=== PATIENT | female | born 1940 | race Caucasian/White ===

== ENCOUNTER → 2016-12-02 | Outpatient (CLI) | payer MEDICARE ==
--- NOTE | 2016-12-03 08:34 | MM ---
Reason for exam: screening (asymptomatic). Last mammogram was performed 1 year and 1 month ago. History: Patient is postmenopausal. Family history of premenopausal breast cancer in daughter at age 40. Took hormonal contraceptives for 10 years. Took estrogen for 5 years. Physical Findings: A clinical breast exam by your physician is recommended on an annual basis and results should be correlated with mammographic findings. MG 3D Screening Mammo W/Cad Bilateral CC and MLO view(s) were taken. Prior study comparison: November 13, 2015, bilateral MG 3d screening mammo w/cad. October 10, 2013, bilateral MG screening mammo w CAD. There are scattered fibroglandular densities. Benign calcifications are stable. No significant changes when compared with prior studies. ASSESSMENT: Benign, BI-RAD 2 RECOMMENDATION: Routine screening mammogram of both breasts in 1 year.
== END | disposition home or self-care (01) ==
LOC: RADMAMWWP 09:31
PROVIDERS: ATTEND Family Medicine
DX: Z12.31 Encounter for screening mammogram for malignant neoplasm of breast (principal)
CPT/HCPCS: 77063; G0202

== ENCOUNTER 2018-04-24 13:18 | Emergency (ER) | payer MEDICARE ==
[2018-04-24 13:25] VITALS: RESP 18
--- NOTE | 2018-04-24 13:44 | ED ---
General Adult HPI - General Chief complaint: Shortness of Breath Stated complaint: SOB Time Seen by Provider: 04/24/18 13:27 Source: patient Mode of arrival: wheelchair Limitations: no limitations - Related Data Home Medications Medication Instructions Recorded Confirmed Aspirin EC [Ecotrin Low Dose] 81 mg PO DAILY 04/24/18 04/24/18 Atorvastatin [Lipitor] 40 mg PO HS 04/24/18 04/24/18 Cholecalciferol [Vitamin D3] 1,000 unit PO DAILY 04/24/18 04/24/18 Clopidogrel [Plavix] 75 mg PO HS 04/24/18 04/24/18 Fluticasone Propionate [Flovent 250 mcg INHALATION RT-BID 04/24/18 04/24/18 Diskus] Loratadine [Claritin] 10 mg PO DAILY 04/24/18 04/24/18 Losartan Potassium [Cozaar] 50 mg PO DAILY 04/24/18 04/24/18 Metoprolol Succinate [Toprol XL] 25 mg PO DAILY 04/24/18 04/24/18 Multivitamin,Therapeutic [Thera] 1 tab PO DAILY 04/24/18 04/24/18 Vit C/E/Zn/Coppr/Lutein/Zeaxan 1 cap PO DAILY 04/24/18 04/24/18 [Preservision Areds 2 Softgel] metFORMIN HCL 500 mg PO BID 04/24/18 04/24/18 Previous Rx's Medication Instructions Recorded Azithromycin [Zithromax Z-pack] 0 mg PO DIRECTED #6 tab 04/24/18 Allergies Allergy/AdvReac Type Severity Reaction Status Date / Time ciprofloxacin [From Cipro] Allergy Unknown Verified 04/24/18 13:49 Review of Systems ROS Statement: Those systems with pertinent positive or pertinent negative responses have been documented in the HPI. ROS Other: All systems not noted in ROS Statement are negative. Past Medical History Past Medical History: COPD, CVA/TIA, Diabetes Mellitus, Hyperlipidemia, Hypertension, Myocardial Infarction (DC) Additional Past Medical History / Comment(s): diverticulitis History of Any Multi-Drug Resistant Organisms: None Reported Past Surgical History: Appendectomy, Tonsillectomy Additional Past Surgical History / Comment(s): Open Heart Surgery Past Psychological History: No Psychological Hx Reported Smoking Status: Former smoker Past Alcohol Use History: None Reported Past Drug Use History: None Reported General Exam Limitations: no limitations Course Vital Signs 04/24/18 13:20 Temperature 97.5 F L Pulse Rate 93 Respiratory 18 Rate Blood Pressure 132/82 O2 Sat by Pulse 98 Oximetry Medical Decision Making - Medical Decision Making Dictation was produced using [facility] [employer] dictation software. please excuse any grammatical, word or spelling errors. Chief Complaint: 77-year-old female past medical history coronary artery disease , COPD, hypertension presents with shortness of breath. History of Present Illness: Patient 77-year-old female presents chief complaint of shortness of breath. Patient has been feeling unwell for the last 2-3 days. She was [facility] seen [facility] she was sent here because of concern of cardiac disease. Patient has been runny nose, nasal congestion for the past 2 days. Today she states her symptoms are getting slightly worse. No overt sick contacts. Patient denies any swelling to her lower extremities. Patient has any pain complaints. She's been also coughing. She states her cough is productive of white sputum. Patient denies any fevers however does have some chills. The ROS documented in this emergency department record has been reviewed and confirmed by me. Those systems with pertinent positive or negative responses have been documented in the HPI. All other systems are other negative and/or noncontributory. PHYSICAL EXAM: General Impression: Alert and oriented x3, not in acute distress HEENT: Normocephalic atraumatic, extra-ocular movements intact, pupils equal and reactive to light bilaterally, mucous membranes moist. Cardiovascular: Heart regular rate and rhythm, S1&S2 audible, no murmurs, rubs or gallops Chest: Lungs clear to auscultation bilaterally, no rhonchi, no wheeze, no rales Abdomen: Bowel sounds present, abdomen soft, non-tender, non-distended, no organomegaly Musculoskeletal: Pulses present and equal in all extremities, no peripheral edema Motor: Power 5/5 bilaterally, no focal deficits noted Neurological: CN II-XII grossly intact, no focal motor or sensory deficits noted Skin: Intact with no visualized rashes Psych: Normal affect and mood ED course: 77-year-old well-appearing female with clinical presentation concerning for viral URI versus pulmonary infection. Upon arrival are within acceptable limits. Patient showing any signs of acute decompensated heart failure. No clinical suspicion of pulmonary embolus. She has rhinorrhea and nasal congestion at bedside. Patient's symptoms consistent with viral URI however there is a chance that her symptoms may represent early pneumonia. Patient prescription for Zithromax pack. She is told to fill it in 1-2 days if she feels her symptoms are not improving. Patient otherwise told to follow-up with primary care physician. Told to return to emergency department with worsening symptoms including worsening shortness of breath, fever, constitutional symptoms. No click suspicion of pulmonary emboli causing shortness breath given that no lower extremity symptoms. No history of PE or DVT and patient converted medically stable. Patient understandable agreeable to plan. - Lab Data Lab Results 04/24/18 Range/Units 13:50 Influenza Type A RNA Not Detected (Not Detectd) Influenza Type B (PCR) Not Detected (Not Detectd) Disposition Clinical Impression: URI (upper respiratory infection) Disposition: HOME SELF-CARE Condition: Good Instructions (If sedation given, give patient instructions): Acute Bronchitis ( ED) Prescriptions: Azithromycin [Zithromax Z-pack] 0 mg PO DIRECTED #6 tab Is patient prescribed a controlled substance at d/c from ED?: No Referrals: Nonstaff,Physician [Primary Care Provider] - 1-2 days Time of Disposition: 14:32
--- NOTE | 2018-04-24 14:00 | XR ---
EXAMINATION TYPE: XR chest 2V DATE OF EXAM: 04/24/2018 COMPARISON: NONE HISTORY: Shortness of breath TECHNIQUE: Frontal and lateral views of the chest are obtained. FINDINGS: Scattered senescent parenchymal changes noted. Hyperinflation compatible with COPD. No evidence for infiltrate. No evidence for atelectasis. Heart size is stable. Mediastinal structures are stable and grossly unremarkable. No evidence for hilar prominence. Degenerative changes dorsal spine. IMPRESSION: 1. No evidence for acute pulmonary disease.
[2018-04-24 14:48] VITALS: BP 135/80; PULSE 80; TEMP 97.4
== END 2018-04-24 14:46 | disposition home or self-care (01) ==
LOC: EC 13:18
DX: J06.9 Acute upper respiratory infection, unspecified (principal); R06.02 Shortness of breath; J44.9 Chronic obstructive pulmonary disease, unspecified; E11.9 Type 2 diabetes mellitus without complications; E78.5 Hyperlipidemia, unspecified; I25.2 Old myocardial infarction; I10 Essential (primary) hypertension; Z86.73 Personal history of transient ischemic attack (TIA), and cerebral infarction without residual deficits; Z87.891 Personal history of nicotine dependence; Z79.82 Long term (current) use of aspirin; Z79.01 Long term (current) use of anticoagulants; Z79.899 Other long term (current) drug therapy; Z79.84 Long term (current) use of oral hypoglycemic drugs; Z88.1 Allergy status to other antibiotic agents
CPT/HCPCS: 71046; 87502; 99285

== ENCOUNTER → 2018-11-10 | Outpatient (CLI) | payer MEDICARE ==
[2018-11-10 13:41] LABS: HCT 41.1 % (34.0-46.0); HGB 13.3 gm/dL (11.4-16.0); MCH 28.7 pg (25.0-35.0); MCHC 32.4 g/dL (31.0-37.0); MCV 88.6 fL (80.0-100.0); Mean Platelet Volume 7.4; Platelet Count 204 k/uL (150-450); RBC 4.63 m/uL (3.80-5.40); WBC 7.8 k/uL (3.8-10.6)
[2018-11-10 13:46] LABS: INR 0.9 (<1.2); Partial Thromboplastin Time 23.2 sec (22.0-30.0)
[2018-11-10 13:55] LABS: Appearance,Urine Cloudy (Clear); Bacteria,Urine Occasional /hpf; Bilirubin,Urine Negative (Negative); Blood,Urine Negative (Negative); Color,Urine Yellow; Glucose,Urine (UA) Negative (Negative); Ketones,Urine Negative (Negative); Leukocyte Esterase,Urine Small (Negative); Mucus,Urine Few /hpf; Nitrite,Urine Negative (Negative); Protein,Urine Trace (Negative); RBC,Urine 5 /hpf (0-5); Specific Gravity,Urine 1.027 (1.001-1.035); Squamous Epithelial Cell,Urine 18 /hpf (0-4); Urobilinogen,Urine <2.0 mg/dL (<2.0); WBC,Urine 12 /hpf (0-5)
[2018-11-10 14:02] LABS: Calcium 9.4 mg/dL (8.4-10.2); Potassium 4.5 mmol/L (3.5-5.1); Total Bilirubin 0.4 mg/dL (0.2-1.3); Total Protein 6.8 g/dL (6.3-8.2)
== END | disposition home or self-care (01) ==
LOC: LABWHC1 12:46
PROVIDERS: ATTEND Orthopaedic Surgery
DX: Z01.812 Encounter for preprocedural laboratory examination (principal); Z79.01 Long term (current) use of anticoagulants
CPT/HCPCS: 36415; 80053; 81001; 85027; 85610; 85730; 87070

== ENCOUNTER 2018-11-22 05:37 | Inpatient (IN) | payer MEDICARE ==
--- NOTE | 2018-11-08 08:59 | CONS ---
CONSULTATION Preoperative evaluation prior to hip surgery. The patient is scheduled to have surgery early November at [facility] by Dr. Geronimo Fam. CHIEF COMPLAINT: The patient's chief complaint is the hip pain. PAST MEDICAL HISTORY: The patient has underlying history of hypertension, COPD, hyperlipidemia, atherosclerotic heart disease. She has had a remote CVA in the past with good recovery and underlying osteoarthritis of the right hip. HOME MEDICATIONS: Her home medications include: ProAir HFA 90 mcg 2 puffs p.r.n. She is on vitamin D3 replacement 2000 units daily, Zyrtec 10 mg for allergies , aspirin 81 mg, which she will be stopped 1 week prior, atorvastatin for cholesterol 40 mg, losartan 50 mg for blood pressure and metformin 500 mg daily for her type 2 diabetes. REVIEW OF SYSTEMS: Negative for any chest pain or shortness of breath except with exertion. No unusual headaches or visual disturbances. No nausea or vomiting. No urinary or bowel symptoms. She is having a lot of problems with ambulation because of the pain from the right hip. FAMILY HISTORY: Positive for heart disease in her parents and diabetes with her brother. SOCIAL HISTORY: She is a former smoker. Has quit approximately 10 years or more. No history of any excessive alcohol intake. She still lives rather independently. PHYSICAL EXAMINATION: She is alert and oriented, in no acute distress. Her blood pressure was 124/82, pulse of 86, respirations 16, and she was 98% saturated on room air. HEENT was unremarkable. Neck is not stiff. No definite adenopathy, thyromegaly or bruits detected. Lungs were clear. Heart regular without murmurs. Breasts and pelvic exam was deferred. Abdomen is soft and nontender. Extremities without any unusual edema. Neurologically, she is alert and oriented, moving all her extremities without focal deficits noted. The patient did have an EKG in the office which revealed a normal sinus rhythm, nonspecific T-wave changes inferiorly. No definite acute ischemic changes were noted. There was some RV hypertrophy. Question of old inferior wall changes and an incomplete right bundle branch block. Labs are being done at the hospital prior to her surgery. IMPRESSION: But at this time for overall impression, I see no definite contraindication to the planned surgical intervention. The patient is to remain off her aspirin one week prior to her surgery. She can take her losartan with a small sip water in the morning. Probably would recommend also holding her metformin in the morning and patient can have Accu-Cheks and insulin coverage as needed. I will not be available in November for followup. Hospitalist/[facility] to be consulted in my absence for any medical concerns or follow up as needed and patient can return postop for outpatient evaluation with nurse practitioner, Ester Koehler located at [address] [place] [address] in [place]. MMODL / IJN: [id number] / MTDNithin
[~2018-11-22 05:37] MED LIST: ACETAMINOPHEN TAB 500 MG TAB PO ONE; HYDROmorphone 0.5 MG/0.5 ML SYRINGE IVP PRN; MELOXICAM 7.5 MG TAB PO ONE; TRANEXAMIC ACID 1,000 MG in SODIUM CHLORIDE 0.9% 100 ML IVPB ONE
[2018-11-22] MEDS ORDERED: ROPIVACAINE 246.25 MG, EPINEPHrine 0.5 MG, KETOROLAC 30 MG, cloNIDine HCL/PF 80 MCG, WA... MISCELLANE ONE ×5 (06:01)
[2018-11-22] MEDS: LACTATED RINGERS 1,000 ML IV SCH ×2 (06:26→10:15)
[2018-11-22 06:30] LABS: Glucose,Whole Blood 90 mg/dL (75-99)
[2018-11-22] MEDS ORDERED: LIDOCAINE 1% 20 ML VIAL (10MG/ML) FOR IV START INTRADERMA ONE ×3 (06:31)
[2018-11-22] MEDS ORDERED: MIDAZOLAM 2 MG/2 ML VIAL ONE (06:51)
[2018-11-22] MEDS ORDERED: TRANEXAMIC ACID 1,000 MG/10 ML VIAL ONE (06:51)
[2018-11-22] MEDS ORDERED: LACTATED RINGERS 1,000 ML BAG IV ONE (06:51)
[2018-11-22] MEDS ORDERED: PHENYLEPHRINE-0.9% NACL SYG 1 MG/10 ML SYRINGE ONE (06:51)
[2018-11-22] MEDS ORDERED: SODIUM CHLORIDE 0.9% 100 ML BAG ONE (06:51)
[2018-11-22] MEDS ORDERED: PROPOFOL 10 MG/ML 20 ML VIAL IV ONE (06:51)
[2018-11-22] MEDS ORDERED: fentaNYL (PF) 50 MCG/ML 2 ML AMP ONE (06:51)
[2018-11-22] MEDS ORDERED: HEPARIN SODIUM,PORCINE 10,000 UNIT/ML 1 ML VIAL ONE (06:51)
[2018-11-22] MEDS ORDERED: ceFAZolin 3,000 MG in SODIUM CHLORIDE 0.9% IRRIGATIO 3,000 ML IRRIGATION ONE (07:00)
[2018-11-22] MEDS ORDERED: LACTATED RINGERS 1,000 ML IV ONE (08:22)
--- NOTE | 2018-11-22 08:28 | XR ---
EXAMINATION TYPE: XR Hip Limited RT, FL guidance operating room DATE OF EXAM: 11/22/2018 CLINICAL HISTORY: Fluoroscopic documentation during total right hip arthroplasty TECHNIQUE: Fluoroscopy. COMPARISON: None. FINDINGS: Fluoroscopic guidance was provided during procedure performed by Dr. Fma. A total of 49 seconds of fluoroscopic time was utilized during the procedure and 2 spot images was acquired dur ing total right hip arthroplasty. IMPRESSION: As Above.
--- NOTE | 2018-11-22 08:31 | P.OP ---
Date of Procedure: 11/22/18 Preoperative Diagnosis: Severe osteoarthritis right hip Postoperative Diagnosis: Severe osteoarthritis right hip Procedure(s) Performed: Right total hip arthroplasty with a direct anterior approach Implants: Jones and nephew Polarstem size 6 standard Jones & Nephew R3, 3 hole acetabular shell, 48 mm Jones [employer] Nephew reflection 6.5 mm cancellus screw, 20 mm 2 Jones [employer] Nephew R3, XLPE 20 acetabular liner Jones & Nephew Oxinium femoral head 32 m, +0 All components were press-fit. The articulation is Oxinium on polyethylene. Anesthesia: spinal Surgeon: Geronimo Fam Sampler Ovens #1: Cris Pettit Estimated Blood Loss (ml): 200 (67 mL returned with Cell Saver) Pathology: other (Femoral head) Condition: stable Disposition: PACU Indications for Procedure: After failure of conservative treatment we discussed the surgical and nonsurgical treatment options at length. Patient wishes to proceed with a total hip arthroplasty with a direct anterior approach. Complications specific to this procedure were discussed at length, including but not limited to infection, leg length discrepancy, dislocation, and nerve injury. Patient is aware of all these complications and informed consent was obtained Operative Findings: The operative findings are consistent with severe osteoarthritis of the right hip. Description of Procedure: Patient was seen and evaluated in the preoperative area, consent was reviewed, and the surgical site was marked with a skin marker. Patient was then brought to the operating room and given prophylactic antibiotics intravenously. 1 g of Tranexamic acid was also given. A spinal anesthetic was administered by the anesthesia department. The patient was then placed on the [place] table with the bony prominences well-padded. The hip area was then prepped and draped in usual sterile fashion. A universal timeout was then performed, which confirmed the patient's name, surgical site, ALLERGIES, and procedure being performed. Next the incision site was located at 1 cm distal and 1 cm lateral to the anterior superior iliac spine. The skin and subcutaneous tissues were sharply incised. Incision was carefully dissected down to the fascia overlying the tensor fascia andreina muscle. This fascia was then incised in line with the incision. Next, using blunt finger dissection, the tensor fascia andreina muscle was dissected off its investing fascia. The muscle was then carefully retracted laterally with a cobra retractor over the lateral neck of the femur. Next, the circumflex vessels were identified and cauterized using the AquaMantis device. The anterior hip capsule was then exposed. The capsule was then opened and an inverted T fashion. Cobra retractors were then placed intracapsularly. The proximal femur was then visualized. The femoral neck was then osteotomized appropriate level above the lesser trochanter. Small amount of traction was placed with the [place] table. A small wedge of bone was then removed from the remaining femoral head. Next, using a corkscrew femoral head was easily removed from the acetabulum. On gross visual inspection, the femoral head had complete loss of articular cartilage in m ultiple periarticular osteophytes. Attention was then turned to the acetabulum. the acetabulum was exposed and any remaining labrum was excised. Sequential reaming of the acetabulum was performed using fluoroscopic guidance. When the appropriate size was reached, a trial was then placed. The position and fit of the trial was checked with fluoroscopy. The trial was then removed. Then, using fluoroscopic guidance, the final implant was impacted at 20 of anteversion and 40 of abduction, and fully seated in the acetabulum. 2 screws were then placed in the acetabulum. Again fluoroscopy was used to check position of the screws. Next, the liner was then impacted, with a 20 elevated liner located in the anterior superior quadrant. Component locking was confirmed. Attention was then directed to the femur. With the aid of the [place] table, the femur was externally rotated to approximately 130, extended, and abducted under the opposite leg. A side hook was then placed under the proximal femur, and the side hook elevator was used to elevate the proximal femur. Retractors were then placed. A capsular release was performed, as well as a release of the conjoined tendon, which afforded excellent visualization of the proximal femur. Next, a box osteotome was used to lateralize the proximal femur. A floorhand was then used to locate the femoral canal. Sequential broaching was then performed with appropriate size which afforded excellent fixation in the proximal femur. A trial was then placed with appropriate head and neck, and the hip was gently reduced with the aid of the [place] table. Fluoroscopy was then used to check position of the components, as well as to ensure equal leg lengths. The hip was then gently dislocated and the trials were then removed. Final implants were then impacted and the hip was again reduced. Final fluoroscopic x-rays confirmed that the components were in anatomic position, as well as equal leg lengths. The hip was also taken through range of motion, and found to be stable. The hip was then copiously irrigated with antibiotic solution with pulsatile lavage. The hip was then irrigated with Irrisept solution. The soft tissues were then injected with a ropivacaine solution, which consisted of 246.25 mg of ropivacaine, 0.5 mg of epinephrine, 30 mg of Toradol, 80 g of clonidine, and 48.45 mL of sterile water, for a total of 100 mL of fluid injected. A second dose of 1 g of Tranexamic acid was also given. the fascia was then closed with 2-0 strata fix suture. The subcutaneous tissue was closed with 3-0 Vicryl. The subcuticular tissue was closed with 3-0 strata fix suture. The skin was then closed with Dermabond glue and a sterile silver dressing. The patient was then transferred to the recovery room in stable c ondition. The res habilitation assistant MARIA D Berry was required due to the complexity of surgery, and the need for skilled library circulation assistant for positioning, draping, exposure, retraction, and closure of the wound.
[2018-11-22] MEDS ORDERED: HYDROcodone/APAP 5-325MG 1 EACH TAB PO PRN (08:52)
[2018-11-22] MEDS ORDERED: hydrOXYzine PAMOATE 25 MG CAP PO PRN (08:52)
[2018-11-22] MEDS ORDERED: MAGNESIUM HYDROXIDE 2,400 MG/10 ML CUP PO PRN (08:52)
[2018-11-22] MEDS ORDERED: ONDANSETRON 4 MG/2 ML VIAL IVP PRN (08:52)
[2018-11-22] MEDS ORDERED: HYDROmorphone 0.5 MG/0.5 ML SYRINGE IVP PRN ×3 (08:52)
[2018-11-22] MEDS ORDERED: NALOXONE 0.4 MG/ML 1 ML VIAL IV PRN (08:52)
[2018-11-22] MEDS ORDERED: DIAZEPAM 5 MG TAB PO PRN (08:52)
[2018-11-22 09:09] LABS: Glucose,Whole Blood 112 mg/dL (75-99)
[2018-11-22] MEDS: HYDROcodone/APAP 5-325MG 1 EACH TAB PO PRN ×3 (10:07→22:02)
[2018-11-22] MEDS: SODIUM CHLORIDE 0.9% 1,000 ML IV SCH (10:15)
[2018-11-22 10:46] VITALS: BMI 28.6
--- NOTE | 2018-11-22 10:47 | XR ---
EXAMINATION TYPE: XR Hip Limited RT DATE OF EXAM: 11/22/2018 CLINICAL HISTORY: Right hip pain and osteoarthritis. TECHNIQUE: Single AP portable view of right hip is obtained immediately postoperatively. COMPARISON: None. FINDINGS: Metallic hardware from right hip arthroplasty is seen and appears satisfactory in alignment and position. There is evidence of recent surgery with soft tissue swelling and subcutaneous gas no christopher laterally. IMPRESSION: Metallic hardware from right hip arthroplasty is satisfactory in position.
[2018-11-22 11:59] LABS: Glucose,Whole Blood 109 mg/dL (75-99)
--- NOTE | 2018-11-22 13:20 | P.CONS ---
History of Present Illness - Reason for Consult Consult date: 11/22/18 Consult for medical management of essential hypertension type 2 diabetes an Requesting physician: Geronimo Fam - Chief Complaint Consult for management of essential hypertension type 2 diabetes and COPD - History of Present Illness The patient is a 78-year-old female with a past medical history of coronary artery disease, essential hypertension, dyslipidemia and COPD who is admitted to the primary orthopedic service under Dr. aFm after scheduled right total hip arthroplasty secondary to a history of severe right hip osteoarthritis. The patient is postop day #0 and reports that her hip pain is manageable but she is complaining of lower back pain, she denies any chest pain or shortness of breath as she reports compliance with her home regimen and was compliant with stopping aspirin and vitamins 7 days prior to her scheduled surgery. Patient denies any nausea vomiting or abdominal pain and otherwise has no other somatic complaints. She has expressed interest at going to rehab as her whole post surgery is to be able to ambulate without her walker. Review of the patient's my history that she is continued on a cocktail of Accokeek Dilaudid and Valium for pain, she is currently receiving perioperative antibiotics with cefazolin. Patient appears hemodynamically stable Review of Systems Pertinent positives per HPI all other review of systems was negative Past Medical History Past Medical History: COPD, CVA/TIA, Diabetes Mellitus, Hyperlipidemia, Hypertension, Memory Impairment, Myocardial Infarction (VT), Osteoarthritis (OA) Additional Past Medical History / Comment(s): diverticulitis, couple TIA's- memory problems, balance problems, started Macrobid today for UTI Last Myocardial Infarction Date:: unknown History of Any Multi-Drug Resistant Organisms: None Reported Past Surgical History: Appendectomy, Heart Catheterization With Stent, Hysterectomy, Tonsillectomy Additional Past Surgical History / Comment(s): states has 5 stents total Past Anesthesia/Blood Transfusion Reactions: Previous Problems w/ Anesthesia Additional Past Anesthesia/Blood Transfusion Reaction / Comm: slow to wake from anesthesia Date of Last Stent Placement:: unknown Smoking Status: Former smoker - Past Family History Mother Family Medical History: No Reported History Medications and Allergies Home Medications Medication Instructions Recorded Confirmed Type Aspirin EC [Ecotrin Low Dose] 81 mg PO DAILY 04/24/18 11/22/18 History Atorvastatin [Lipitor] 40 mg PO HS 04/24/18 11/22/18 History Cholecalciferol [Vitamin D3] 1,000 unit PO DAILY 04/24/18 11/22/18 History Fluticasone Propionate [Flovent 250 mcg INHALATION RT-BID 04/24/18 11/22/18 History Diskus] Loratadine [Claritin] 10 mg PO HS 04/24/18 11/22/18 History Losartan Potassium [Cozaar] 50 mg PO DAILY 04/24/18 11/22/18 History Multivitamin,Therapeutic [Thera] 1 tab PO DAILY 04/24/18 11/22/18 History Vit C/E/Zn/Coppr/Lutein/Zeaxan 1 cap PO DAILY 04/24/18 11/22/18 History [Preservision Areds 2 Softgel] metFORMIN HCL 500 mg PO DAILY 04/24/18 11/22/18 History Acetaminophen [Tylenol Arthritis] 650 mg PO Q6H PRN 11/11/18 11/22/18 History Bisacodyl 5 mg PO HS 11/11/18 11/22/18 History Allergies Allergy/AdvReac Type Severity Reaction Status Date / Time carvedilol [From Coreg] Allergy Unknown Verified 11/22/18 09:37 ciprofloxacin [From Cipro] Allergy Unknown Verified 11/22/18 09:37 Iodinated Contrast- Oral and Allergy Unknown Verified 11/22/18 09:37 IV Dye simvastatin Allergy Unknown Verified 11/22/18 09:37 Sulfa (Sulfonamide Allergy Unknown Verified 11/22/18 09:37 Antibiotics) Physical Exam Vitals: Vital Signs Temp Pulse Pulse Resp BP Pulse Ox 11/22/18 09:45 63 16 120/59 98 11/22/18 09:30 61 16 116/57 98 11/22/18 09:15 64 16 116/55 98 11/22/18 09:00 63 16 122/56 100 11/22/18 08:44 97.1 F L 77 16 99/55 98 11/22/18 06:18 97.2 F L 87 16 131/69 96 Intake and Output 11/21/18 11/22/18 11/22/18 22:59 06:59 14:59 Intake Total 100 1251 Output Total 200 Balance 100 1051 Intake: IV 100 1251 Output: Estimated Blood Loss 200 Constitutional: No acute distress, conversant, pleasant Eyes: Anicteric sclerae, moist conjunctiva, no lid-lag, PERRLA ENMT: NC/AT,Oropharynx clear, no erythema, exudates Neck:Supple, FROM, no masses, or JVD, No carotid bruits; No thyromegaly Lungs: Clear to auscultation, Clear to percussion, Normal respiratory effort, no accessory muscle use Cardiovascular: Heart regular in rate and rhythm, No murmurs, gallops, or rubs no peripheral edema Abdominal: Soft Nontender, nom distended, no guarding, no rebound or rigidity, Normoactive bowel sounds No hepatomegaly, No splenomegaly, No palpable mass No abdominal wall hernia noted Skin: Normal temperature, tone, texture, turgor, No induration No subcutaneous nodules, No rash, lesions, No ulcers Extremities:No digital cyanosis No clubbing, Pedal pulses intact and symmetrical Radial pulses intact and symmetrical , No calf tenderness Psychiatric: Alert and oriented to person, place and time, Appropriate affect Intact judgement Neuro: Muscles Strength 5/5 in all 4 extremities, Sensation to light touch keyana sly present throughout, Cranial nerves II-XII grossly intact. No focal sensory deficits Results Labs: Abnormal Lab Results - Last 24 Hours (Table) 11/22/18 Range/Units 09:05 POC Glucose (mg/dL) 112 H (75-99) mg/dL Assessment and Plan (1) Type 2 diabetes mellitus Current Visit: Yes Status: Acute Code(s): E11.9 - TYPE 2 DIABETES MELLITUS WITHOUT COMPLICATIONS SNOMED Code(s): 90502951 (2) Essential hypertension Current Visit: Yes Status: Acute Code(s): I10 - ESSENTIAL (PRIMARY) HYPERTENSION SNOMED Code(s): 53250549 (3) CAD (coronary artery disease) Current Visit: Yes Status: Acute Code(s): I25.10 - ATHSCL HEART DISEASE OF [place] CORONARY ARTERY W/O ANG PCTRS SNOMED Code(s): 42395550 (4) Dyslipidemia Current Visit: Yes Status: Acute Code(s): E78.5 - HYPERLIPIDEMIA, UNSPECIFIED SNOMED Code(s): 771362920 (5) COPD (chronic obstructive pulmonary disease) Current Visit: Yes Status: Acute Code(s): J44.9 - CHRONIC OBSTRUCTIVE PULMONARY DISEASE, UNSPECIFIED SNOMED Code(s): 23796771 (6) History of total right hip arthroplasty Current Visit: Yes Status: Acute Code(s): Z96.641 - PRESENCE OF RIGHT ARTIFICIAL HIP JOINT SNOMED Code(s): 543201559536 Plan: The patient is doing well postoperatively, complain of lower back pain will defer to primary orthopedic service regarding ongoing analgesic therapy. The patient appears hemodynamically stable, she is continued on perioperative antibiotics with cefazolin. We'll restart her home medications Including her Cozaar for blood pressure, we'll hold her metformin and initiate correctional scale insulin coverage. Patient COPD stable without any acute exacerbation. The patient is encouraged to work well with physical therapy, we'll continue to follow closely with you. We appreciate the opportunity to be involved in patient's care. For any further questions please not hesitate to contact us on an inpatient team
[2018-11-22 16:56] LABS: Glucose,Whole Blood 145 mg/dL (75-99)
[2018-11-22] MEDS: INSULIN ASPART (NovoLOG) 100 UNIT/ML VIAL SQ SCH (17:11)
[2018-11-22] MEDS: FLUTICASONE 110 MCG INHALER INHALATION SCH (19:40)
[2018-11-22] MEDS ORDERED: SENNOSIDES-DOCUSATE SODIUM 1 EACH TAB PO SCH (21:00)
[2018-11-22] MEDS: ASPIRIN 325 MG TAB PO SCH (22:01)
[2018-11-22] MEDS: ATORVASTATIN 40 MG TAB PO SCH (22:01)
[2018-11-22] MEDS: BISACODYL 5 MG TABLET.DR PO SCH (22:02)
[2018-11-22] MEDS: LORATADINE 10 MG TAB PO SCH (22:02)
[2018-11-23] MEDS: INSULIN ASPART (NovoLOG) 100 UNIT/ML VIAL SQ SCH ×5 (00:26→22:15)
[2018-11-23] MEDS: SODIUM CHLORIDE 0.9% 1,000 ML IV SCH ×2 (01:29→11:50)
[2018-11-23] MEDS: HYDROcodone/APAP 5-325MG 1 EACH TAB PO PRN (03:43)
[2018-11-23 06:55] LABS: Glucose,Whole Blood 106 mg/dL (75-99)
[2018-11-23] MEDS: FLUTICASONE 110 MCG INHALER INHALATION SCH ×2 (07:46→21:45)
[2018-11-23 08:26] LABS: Basophils % (A) 0 %; Eosinophils # (A) 0.1 k/uL (0-0.7); Eosinophils % (A) 1 %; HCT 30.8 % (34.0-46.0); Lymphocytes # (A) 1.4 k/uL (1.0-4.8); Lymphocytes % (A) 14 %; Mean Platelet Volume 8.3; Monocytes # (A) 0.5 k/uL (0-1.0); Monocytes % (A) 5 %; Neutrophils # (A) 7.4 k/uL (1.3-7.7); Neutrophils % (A) 79 %; Platelet Count 152 k/uL (150-450); RBC 3.49 m/uL (3.80-5.40); RDW 14.7 % (11.5-15.5); WBC 9.4 k/uL (3.8-10.6)
[2018-11-23] MEDS ORDERED: HYDROcodone/APAP 7.5-325MG 1 EACH TAB PO PRN (08:50)
--- NOTE | 2018-11-23 08:55 | P.PN ---
Subjective Progress Note Date: 11/23/18 This is a 78-year-old female who is status post right total hip arthroplasty. This is postoperative day #1 and patient is seen and evaluated at bedside with Dr. Geronimo Fam. Patient does complain of pain in the right hip today. Patient states that she has been able to ambulate to the bathroom and back. Patient denies any fever/chills, numbness, weakness, tingling, abdominal pain, shortness of breath or chest pain. Objective - Vital Signs Vital signs: Vital Signs Temp 98.2 F 11/23/18 07:00 Pulse 84 11/23/18 07:00 Resp 17 11/23/18 07:00 BP 115/61 11/23/18 07:00 Pulse Ox 93 L 11/23/18 07:00 Intake & Output 11/22/18 11/23/18 11/23/18 18:59 06:59 18:59 Intake Total 1751 240 Output Total 400 Balance 1351 240 Intake: IV 1251 Oral 500 240 Output: Urine 200 Estimated Blood Loss 200 - Exam Vital signs are stable. Patient is in no acute distress and is alert and oriented 3. Calf is soft and nontender to palpation. Dressing is clean, dry, and intact. Patient has full foot and ankle motion without pain or difficulty. Neurovascular status and circulatory status are intact. - Labs Labs: Abnormal Lab Results - Last 24 Hours (Table) 11/22/18 11/22/18 11/22/18 Range/Units 09:05 11:48 16:54 POC Glucose (mg/dL) 112 H 109 H 145 H (75-99) mg/dL 11/23/18 Range/Units 06:53 POC Glucose (mg/dL) 106 H (75-99) mg/dL Assessment and Plan (1) Osteoarthritis of right hip Current Visit: Yes Status: Acute Code(s): M16.11 - UNILATERAL PRIMARY OSTEOARTHRITIS, RIGHT HIP SNOMED Code(s): 245394277310241 (2) Status post total hip replacement, right Current Visit: Yes Status: Acute Code(s): Z96.641 - PRESENCE OF RIGHT ARTIFICIAL HIP JOINT SNOMED Code(s): 017954509970 Plan: Continue routine postop care and pain control. Continue anticoagulation with aspirin. Weightbearing as tolerated with a walker. Leave dressing in place for 10 days. Appreciate input from medicine. Anticipate discharge to rehab on 11/25/2018.
[2018-11-23 08:57] LABS: HGB 10.1 gm/dL (11.4-16.0)
[2018-11-23] MEDS: MELOXICAM 7.5 MG TAB PO SCH (09:08)
[2018-11-23] MEDS: LOSARTAN 50 MG TAB PO SCH (09:09)
[2018-11-23] MEDS: CHOLECALCIFEROL 1,000 UNIT TAB PO SCH (09:09)
[2018-11-23] MEDS: HYDROcodone/APAP 7.5-325MG 1 EACH TAB PO PRN ×3 (09:09→22:16)
[2018-11-23] MEDS: ASPIRIN 325 MG TAB PO SCH ×2 (09:09→22:16)
[2018-11-23 11:24] LABS: Glucose,Whole Blood 117 mg/dL (75-99)
[2018-11-23] MEDS: LACTATED RINGERS 1,000 ML IV SCH (11:48)
--- NOTE | 2018-11-23 12:37 | P.PN ---
Subjective Progress Note Date: 11/23/18 Principal diagnosis: hip pain Patient is a 78 yo female with a past medical history of diabetes type 2, on oral agents, COPD, HTN, and dyslipidemia who presented for elective total hip arthroplasty. She underwent right total hip arthroplasty with direct anterior approach on 11/22 without any immediate postoperative complications. She's been having difficulty with control of her back pain since surgery. Patient seen and examined at bedside. She continues to have back pain. She complains of some left breast rib pain. She has this at home and states it is identical to when she has at home. She denies any associated shortness of breath, nausea, vomiting, numbness, tingling, lightheadedness, or dizziness. It is reproducible. Her pain in her hip is well controlled. She is anxious to get rehab. No BM yet, feels that diet is almost back to normal. Objective - Vital Signs Vital signs: Vital Signs Temp 98.2 F 11/23/18 07:00 Pulse 84 11/23/18 07:00 Resp 17 11/23/18 07:00 BP 115/61 11/23/18 07:00 Pulse Ox 93 L 11/23/18 07:00 Intake & Output 11/22/18 11/23/18 11/23/18 18:59 06:59 18:59 Intake Total 1751 240 Output Total 400 Balance 1351 240 Intake: IV 1251 Oral 500 240 Output: Urine 200 Estimated Blood Loss 200 Other: Voiding Method Toilet - Exam General: non toxic, mild distress due to pain, appears at stated age Derm: warm, dry Head: atraumatic, normocephalic, symmetric Eyes: EOMI, no lid lag, anicteric sclera Mouth: no lip lesion, mucus membranes moist Cardiovascular: S1S2 reg, no murmur, positive posterior tibial pulse bilateral, Lungs: decreased bs bilateral, no rhonchi, no rales , no accessory muscle use Abdominal: soft, nontender to palpation, no guarding, no appreciable organomegaly Ext: no gross muscle atrophy, no edema, no contractures Neuro: CN II-XI grossly intact, no focal neuro deficits Psych: Alert, oriented, appropriate affect - Labs CBC & Chem 7: 11/23/18 06:46 Labs: Abnormal Lab Results - Last 24 Hours (Table) 11/22/18 11/22/18 11/23/18 Range/Units 11:48 16:54 06:46 RBC 3.49 L (3.80-5.40) m/uL Hgb 10.1 L D (11.4-16.0) gm/dL Hct 30.8 L (34.0-46.0) % POC Glucose (mg/dL) 109 H 145 H (75-99) mg/dL 11/23/18 11/23/18 Range/Units 06:53 11:23 RBC (3.80-5.40) m/uL Hgb (11.4-16.0) gm/dL Hct (34.0-46.0) % POC Glucose (mg/dL) 106 H 117 H (75-99) mg/dL Assessment and Plan Assessment: Patient is a 78-year-old female status post direct anterior posterior right hip replacement. Postop being managed by ortho Diabetes mellitus type 2, controlled -Continue a sliding scale insulin, off metformin -If diarrhea improves in a.m. will likely resume metformin and stop sliding scale insulin Acute blood loss anemia - anticipate outcome of surgery - should improve without significant intervention. - repeat CBC in 1 week Hypertension, controlled -Continue with Cozaar -Follow blood pressures Coronary artery disease -Hold aspirin 81 mg while receiving aspirin 325 mg twice daily. When she has completed the 325 mg twice daily regiment for postop DVT prophylaxis she can resume her aspirin 81 mg daily. -We will add PPI for GERD prophylaxis -On statin therapy Dyslipidemia -Statin COPD -Continue with Flovent inhaler -When necessary albuterol DVT prophylaxis: Aspirin 325 mg twice daily Discussed with: Patient, nursing, MARIA D Lynch Anticipated discharge: 1-[address] [facility] [address] A total of 25 minutes was spent on the care of this complex patient more than 50% of the time was spent in counseling and care coordination.
[2018-11-23] MEDS: SENNOSIDES-DOCUSATE SODIUM 1 EACH TAB PO SCH ×2 (13:27→22:16)
[2018-11-23 16:34] LABS: Glucose,Whole Blood 115 mg/dL (75-99)
[2018-11-23 20:54] LABS: Glucose,Whole Blood 163 mg/dL (75-99)
[2018-11-23 22:11] LABS: Glucose,Whole Blood 152 mg/dL (75-99)
[2018-11-23] MEDS: BISACODYL 5 MG TABLET.DR PO SCH (22:16)
[2018-11-23] MEDS: LORATADINE 10 MG TAB PO SCH (22:16)
[2018-11-23] MEDS: ATORVASTATIN 40 MG TAB PO SCH (22:16)
[2018-11-24 03:34] VITALS: RESP 16
[2018-11-24 06:43] LABS: Glucose,Whole Blood 96 mg/dL (75-99)
[2018-11-24] MEDS: HYDROcodone/APAP 7.5-325MG 1 EACH TAB PO PRN ×2 (06:48→13:23)
[2018-11-24] MEDS: FLUTICASONE 110 MCG INHALER INHALATION SCH (07:29)
--- NOTE | 2018-11-24 07:56 | P.PN ---
Subjective Progress Note Date: 11/24/18 This is a 78-year-old female who is status post right total hip arthroplasty. This is postoperative day #1 and patient is seen and evaluated at bedside with Dr. Geronimo Fam. Patient states that her pain is well-controlled today and she has been up and walking to the bathroom and back. Patient denies any fever/chills, numbness, weakness, tingling, abdominal pain, shortness of breath or chest pain. Objective - Vital Signs Vital signs: Vital Signs Temp 98.3 F 11/24/18 07:00 Pulse 72 11/24/18 07:00 Resp 16 11/24/18 07:00 BP 120/62 11/24/18 07:00 Pulse Ox 96 11/24/18 07:00 Intake & Output 11/23/18 11/24/18 11/24/18 18:59 06:59 18:59 Intake Total 960 150 Balance 960 150 Intake: Oral 960 150 Other: Voiding Method Toilet # Voids 2 0 - Exam Vital signs are stable. Patient is in no acute distress and is alert and oriented 3. Calf is soft and nontender to palpation. Dressing is clean, dry, and intact. Patient has full foot and ankle motion without pain or difficulty. Neurovascular status and circulatory status are intact. - Labs CBC & Chem 7: 11/23/18 06:46 Labs: Abnormal Lab Results - Last 24 Hours (Table) 11/23/18 11/23/18 11/23/18 Range/Units 06:46 11:23 16:33 RBC 3.49 L (3.80-5.40) m/uL Hgb 10.1 L D (11.4-16.0) gm/dL Hct 30.8 L (34.0-46.0) % POC Glucose (mg/dL) 117 H 115 H (75-99) mg/dL 11/23/18 11/23/18 Range/Units 20:53 22:10 RBC (3.80-5.40) m/uL Hgb (11.4-16.0) gm/dL Hct (34.0-46.0) % POC Glucose (mg/dL) 163 H 152 H (75-99) mg/dL Assessment and Plan (1) Osteoarthritis of right hip Current Visit: Yes Status: Acute Code(s): M16.11 - UNILATERAL PRIMARY OSTEOARTHRITIS, RIGHT HIP SNOMED Code(s): 224927884469179 (2) Status post total hip replacement, right Current Visit: Yes Status: Acute Code(s): Z96.641 - PRESENCE OF RIGHT ARTIFICIAL HIP JOINT SNOMED Code(s): 082815052641 Plan: Continue routine postop care and pain control. Continue anticoagulation with aspirin. Weightbearing as tolerated with a walker. Leave dressing in place for 10 days. Appreciate input from medicine. Anticipate discharge to rehab in the next 24-48 hours.
--- NOTE | 2018-11-24 08:05 | P.DS ---
Providers Date of admission: 11/22/18 05:37 Expected date of discharge: 11/24/18 Attending physician: Geronimo Fam Consults: 11/22/18 08:52 Consult Physician Routine Consulting Provider: Aisha Mccall Consult Reason/Comments: medical management Do you want consulting provider notified?: Yes Primary care physician: Rachid Balderas - Discharge Diagnosis(es) (1) Osteoarthritis of right hip Current Visit: Yes Status: Acute (2) Status post total hip replacement, right Current Visit: Yes Status: Acute Hospital Course: This is a 78-year-old female with known history of degenerative arthritis of the right hip. The patient presents for evaluation. After discussion and consideration patient elects to proceed with total hip arthroplasty. The patient is seen preoperatively by Dr. Fam and medically cleared for surgery by their primary care physician. Patient is admitted to [facility] on 11/22/2018 for total hip arthroplasty. The procedures performed without complication or sequelae. The patient is doing well postoperatively. Labs and vital signs are stable on day of discharge. On day of discharge patient's hip incision is healing well. There is minimal erythema. There is no drainage noted at this time. There is minimal soft tissue swelling to the hip and thigh. Patient has full foot and ankle motion without difficulty or pain. Calf is soft and nontender to palpation. Neurovascular status to the right lower extremity is intact. Patient is discharged to rehab in good condition. Opioid start talking form is reviewed and signed at patient bedside. Please see med rec for accurate list of home medications. Plan - Discharge Summary Discharge Rx Participant: No New Discharge Prescriptions: New Aspirin 325 mg PO BID #60 tab HYDROcodone/APAP 7.5-325MG [[place] 7.5-325] 1 - 2 tab PO Q6H PRN #56 tab PRN Reason: Pain Sennosides [Senokot] 1 tab PO BID #60 tablet Pantoprazole Sodium [Protonix] 20 mg PO DAILY #30 tablet.dr Liang Action Multivitamin,Therapeutic [Thera] 1 tab PO DAILY Loratadine [Claritin] 10 mg PO HS metFORMIN HCL 500 mg PO DAILY Fluticasone Propionate [Flovent Diskus] 250 mcg INHALATION RT-BID Cholecalciferol [Vitamin D3] 1,000 unit PO DAILY Atorvastatin [Lipitor] 40 mg PO HS Aspirin EC [Ecotrin Low Dose] 81 mg PO DAILY Losartan Potassium [Cozaar] 50 mg PO DAILY Vit C/E/Zn/Coppr/Lutein/Zeaxan [Preservision Areds 2 Softgel] 1 cap PO DAILY Bisacodyl 5 mg PO HS Acetaminophen [Tylenol Arthritis] 650 mg PO Q6H PRN PRN Reason: Pain Discharge Medication List Aspirin EC [Ecotrin Low Dose] 81 mg PO DAILY 04/24/18 [History] Atorvastatin [Lipitor] 40 mg PO HS 04/24/18 [History] Cholecalciferol [Vitamin D3] 1,000 unit PO DAILY 04/24/18 [History] Fluticasone Propionate [Flovent Diskus] 250 mcg INHALATION RT-BID 04/24/18 [History] Loratadine [Claritin] 10 mg PO HS 04/24/18 [History] Losartan Potassium [Cozaar] 50 mg PO DAILY 04/24/18 [History] Multivitamin,Therapeutic [Thera] 1 tab PO DAILY 04/24/18 [History] Vit C/E/Zn/Coppr/Lutein/Zeaxan [Preservision Areds 2 Softgel] 1 cap PO DAILY 04/24/18 [History] metFORMIN HCL 500 mg PO DAILY 04/24/18 [History] Acetaminophen [Tylenol Arthritis] 650 mg PO Q6H PRN 11/11/18 [History] Bisacodyl 5 mg PO HS 11/11/18 [History] Aspirin 325 mg PO BID #60 tab 11/23/18 [Rx] HYDROcodone/APAP 7.5-325MG [[place] 7.5-325] 1 - 2 tab PO Q6H PRN #56 tab 11/23/18 [Rx] Pantoprazole Sodium [Protonix] 20 mg PO DAILY #30 tablet. 11/23/18 [Rx] Sennosides [Senokot] 1 tab PO BID #60 tablet 11/23/18 [Rx] Follow up Appointment(s)/Referral(s): [facility] [REFERRING] - 1 Week Activity/Diet/Wound Care/Special Instructions: Weightbearing as tolerated with walker. Leave dressing intact. Dressing may be removed by home care nurse or by patient in 10 days. May shower with dressing on. Recommend use of compression stockings daily for at least 2 weeks during the day to help prevent swelling and blood clots. May remove at night before sleeping. Please follow-up with [facility] in 2 weeks and call with any questions or concerns, . Discharge Disposition: TRANSFER TO SNF/ECF
[2018-11-24] MEDS: LACTATED RINGERS 1,000 ML IV SCH (09:25)
[2018-11-24] MEDS: SODIUM CHLORIDE 0.9% 1,000 ML IV SCH (09:25)
[2018-11-24] MEDS: INSULIN ASPART (NovoLOG) 100 UNIT/ML VIAL SQ SCH ×2 (09:25→12:13)
[2018-11-24] MEDS: ASPIRIN 325 MG TAB PO SCH (09:26)
[2018-11-24] MEDS: SENNOSIDES-DOCUSATE SODIUM 1 EACH TAB PO SCH (09:26)
[2018-11-24] MEDS: CHOLECALCIFEROL 1,000 UNIT TAB PO SCH (09:26)
[2018-11-24] MEDS: LOSARTAN 50 MG TAB PO SCH (09:26)
[2018-11-24] MEDS: MELOXICAM 7.5 MG TAB PO SCH (09:26)
[2018-11-24 11:39] LABS: Glucose,Whole Blood 155 mg/dL (75-99)
[2018-11-24] MEDS ORDERED: POLYETHYLENE GLYCOL 3350 17 GM POWD.PACK PO STA (14:26)
[2018-11-24 14:30] VITALS: BP 104/66; PULSE 85; TEMP 97.9
[2018-11-24] MEDS ORDERED: metFORMIN 500 MG TAB PO SCH (14:30)
--- NOTE | 2018-11-24 14:41 | P.PN ---
Subjective Progress Note Date: 11/24/18 Principal diagnosis: hip pain Patient is a 78 yo female with a past medical history of diabetes type 2, on oral agents, COPD, HTN, and dyslipidemia who presented for elective total hip arthroplasty. She underwent right total hip arthroplasty with direct anterior approach on 11/22 without any immediate postoperative complications. Patient seen and examined at bedside. Pain is much better this afternoon anxious to get to rehab. No chest pain, sob or nausea. + Constipation, low appetite. Objective - Vital Signs Vital signs: Vital Signs Temp 98.3 F 11/24/18 07:00 Pulse 72 11/24/18 07:00 Resp 16 11/24/18 07:00 BP 120/62 11/24/18 07:00 Pulse Ox 96 11/24/18 07:00 Intake & Output 11/23/18 11/24/18 11/24/18 18:59 06:59 18:59 Intake Total 960 150 Balance 960 150 Intake: Oral 960 150 Other: Voiding Method Toilet # Voids 2 0 - Exam General: non toxic, mild distress due to pain, appears at stated age Derm: warm, dry Head: atraumatic, normocephalic, symmetric Eyes: EOMI, no lid lag, anicteric sclera Mouth: no lip lesion, mucus membranes moist Cardiovascular: S1S2 reg, no murmur, positive posterior tibial pulse bilateral, Lungs: CTA bilateral, no rhonchi, no rales , no accessory muscle use Abdominal: soft, nontender to palpation, no guarding, no appreciable organomegaly Ext: no gross muscle atrophy, trace right lower extremity edema, no contractures Neuro: CN II-XI grossly intact, no focal neuro deficits Psych: Alert, oriented, appropriate affect - Labs CBC & Chem 7: 11/23/18 06:46 Labs: Abnormal Lab Results - Last 24 Hours (Table) 11/23/18 11/23/18 11/23/18 Range/Units 16:33 20:53 22:10 POC Glucose (mg/dL) 115 H 163 H 152 H (75-99) mg/dL 11/24/18 Range/Units 11:37 POC Glucose (mg/dL) 155 H (75-99) mg/dL Assessment and Plan Assessment: Patient is a 78-year-old female status post direct anterior posterior right hip replacement. Postop being managed by ortho Diabetes mellitus type 2, controlled -Continue a sliding scale insulin, resume metformin -Still low diet Constipation - add miralax X 1 today - encourage ambulation - Continue with dulcolax and senna Acute blood loss anemia - anticipate outcome of surgery - should improve without significant intervention. - repeat CBC in 1 week Hypertension, controlled -Continue with Cozaar -Follow blood pressures Coronary artery disease -Hold aspirin 81 mg while receiving aspirin 325 mg twice daily. When she has completed the 325 mg twice daily regiment for postop DVT prophylaxis she can resume her aspirin 81 mg daily. -We will add PPI for GERD prophylaxis -On statin therapy Dyslipidemia -Statin COPD -Continue with Flovent inhaler -When necessary albuterol Medically optimized for discharge. DVT prophylaxis: Aspirin 325 mg twice daily Discussed with: Patient, nursing, Anticipated discharge: once insurance auth obtained. [facility] A total of 25 minutes was spent on the care of this complex patient more than 50% of the time was spent in counseling and care coordination.
== END 2018-11-24 17:45 | DRG 470 ==
LOC: 2ORMAIN 05:37 → 4SSUR 09:15
PROVIDERS: ADMIT Orthopaedic Surgery; ATTEND Orthopaedic Surgery
PROC: 0SR906A Replacement of Right Hip Joint with Oxidized Zirconium on Polyethylene Synthetic Substitute, Uncemented, Open Approach (ICD-10-PCS; principal; 2018-11-22 07:00)
DX: M16.11 Unilateral primary osteoarthritis, right hip (principal); D62 Acute posthemorrhagic anemia; I10 Essential (primary) hypertension; E11.9 Type 2 diabetes mellitus without complications; I25.10 Atherosclerotic heart disease of native coronary artery without angina pectoris; J44.9 Chronic obstructive pulmonary disease, unspecified; E78.5 Hyperlipidemia, unspecified; K59.00 Constipation, unspecified; I25.2 Old myocardial infarction; Z79.82 Long term (current) use of aspirin; Z79.84 Long term (current) use of oral hypoglycemic drugs; Z79.899 Other long term (current) drug therapy; Z83.3 Family history of diabetes mellitus; Z86.73 Personal history of transient ischemic attack (TIA), and cerebral infarction without residual deficits; Z87.891 Personal history of nicotine dependence; Z90.710 Acquired absence of both cervix and uterus; Z82.49 Family history of ischemic heart disease and other diseases of the circulatory system; Z90.49 Acquired absence of other specified parts of digestive tract; Z90.89 Acquired absence of other organs; Z95.5 Presence of coronary angioplasty implant and graft; Z87.440 Personal history of urinary (tract) infections; Z88.2 Allergy status to sulfonamides; Z88.8 Allergy status to other drugs, medicaments and biological substances; Z88.1 Allergy status to other antibiotic agents; Z91.041 Radiographic dye allergy status
CPT/HCPCS: 73501; 85025; 86850; 86891; 86900; 86901; 88300; 94640

== ENCOUNTER 2019-03-10 08:23 | Emergency (ER) | payer MEDICARE ==
[2019-03-10 08:29] VITALS: BP 126/79; PULSE 82; RESP 18; TEMP 97.5
--- NOTE | 2019-03-10 08:50 | ED ---
ENT HPI - General Chief complaint: ENT Stated complaint: ears need flushing, throat sore Time Seen by Provider: 03/10/19 08:31 Source: patient, RN notes reviewed Mode of arrival: ambulatory Limitations: no limitations - History of Present Illness Initial comments: 78-year-old female presents to emergency department with chief complaint of ears being plugged, sore throat drainage. Patient had increasing congestion the last few weeks. States that she has a large amount of drainage and nasal congestion. Patient states her years. Plugged and was told that she needs to flush or ears. She states that she is unable to do this. Patient states that she has been using drops in her years. No fevers or chills no chest pain or shortness of breath. - Related Data Home Medications Medication Instructions Recorded Confirmed Aspirin EC [Ecotrin Low Dose] 81 mg PO DAILY 04/24/18 11/22/18 Atorvastatin [Lipitor] 40 mg PO HS 04/24/18 11/22/18 Cholecalciferol [Vitamin D3 (25 1,000 unit PO DAILY 04/24/18 11/22/18 Mcg = 1000 Iu)] Fluticasone Propionate [Flovent 250 mcg INHALATION RT-BID 04/24/18 11/22/18 Diskus] Loratadine [Claritin] 10 mg PO HS 04/24/18 11/22/18 Losartan Potassium [Cozaar] 50 mg PO DAILY 04/24/18 11/22/18 Multivitamin,Therapeutic [Thera] 1 tab PO DAILY 04/24/18 11/22/18 Vit C/E/Zn/Coppr/Lutein/Zeaxan 1 cap PO DAILY 04/24/18 11/22/18 [Preservision Areds 2 Softgel] metFORMIN HCL 500 mg PO DAILY 04/24/18 11/22/18 Acetaminophen [Tylenol Arthritis] 650 mg PO Q6H PRN 11/11/18 11/22/18 Bisacodyl 5 mg PO HS 11/11/18 11/22/18 Previous Rx's Medication Instructions Recorded Aspirin 325 mg PO BID #60 tab 11/23/18 HYDROcodone/APAP 7.5-325MG [[place] 1 - 2 tab PO Q6H PRN #56 tab 11/23/18 7.5-325] Pantoprazole Sodium [Protonix] 20 mg PO DAILY #30 tablet. 11/23/18 Sennosides [Senokot] 1 tab PO BID #60 tablet 11/23/18 Amoxicillin 875 mg PO Q12HR #20 tablet 03/10/19 Fluticasone Nasal [place] [Flonase 2 spr EA NOSTRIL DAILY #1 bottle 03/10/19 Nasal [place]] Allergies Allergy/AdvReac Type Severity Reaction Status Date / Time carvedilol [From Coreg] Allergy Unknown Verified 03/10/19 08:29 ciprofloxacin [From Cipro] Allergy Unknown Verified 03/10/19 08:29 Iodinated Contrast Media Allergy Unknown Verified 03/10/19 08:29 [Iodinated Contrast- Oral and IV Dye] simvastatin Allergy Unknown Verified 03/10/19 08:29 Sulfa (Sulfonamide Allergy Unknown Verified 03/10/19 08:29 Antibiotics) Review of Systems ROS Statement: Those systems with pertinent positive or pertinent negative responses have been documented in the HPI. ROS Other: All systems not noted in ROS Statement are negative. Past Medical History Past Medical History: COPD, CVA/TIA, Diabetes Mellitus, Hyperlipidemia, Hypertension, Myocardial Infarction ([place]) Additional Past Medical History / Comment(s): diverticulitis Last Myocardial Infarction Date:: unknown History of Any Multi-Drug Resistant Organisms: None Reported Past Surgical History: Appendectomy, Tonsillectomy Additional Past Surgical History / Comment(s): Open Heart Surgery Past Anesthesia/Blood Transfusion Reactions: Previous Problems w/ Anesthesia Additional Past Anesthesia/Blood Transfusion Reaction / Comment(s): slow to wake from anesthesia Date of Last Stent Placement:: unknown Past Psychological History: No Psychological Hx Reported Smoking Status: Former smoker Past Alcohol Use History: None Reported Past Drug Use History: None Reported - Past Family History Mother Family Medical History: No Reported History General Exam Limitations: no limitations General appearance: alert, in no apparent distress Head exam: Present: atraumatic, normocephalic, normal inspection Eye exam: Present: normal appearance, PERRL, EOMI. Absent: scleral icterus, conjunctival injection, periorbital swelling ENT exam: Present: normal exam, normal oropharynx, mucous membranes moist Neck exam: Present: normal inspection, full ROM. Absent: tenderness, meningismus, lymphadenopathy Respiratory exam: Present: normal lung sounds bilaterally. Absent: respiratory distress, wheezes, rales, rhonchi, stridor Cardiovascular Exam: Present: regular rate, normal rhythm, normal heart sounds. Absent: systolic murmur, diastolic murmur, rubs, gallop, clicks Course Vital Signs 03/10/19 08:25 Temperature 97.5 F L Pulse Rate 82 Respiratory 18 Rate Blood Pressure 126/79 O2 Sat by Pulse 98 Oximetry Medical Decision Making - Medical Decision Making patient's ears have no evidence of cerumen impaction, symptoms are related to eustachian tube dysfunction be given Flonase she does have some underlying sinus issues with placed on amoxicillin. Return parameters were discussed. Disposition Clinical Impression: Eustachian tube dysfunction, Sinusitis Disposition: HOME SELF-CARE Condition: Stable Instructions (If sedation given, give patient instructions): Sinusitis (ED) Additional Instructions: Please return to the Emergency Department if symptoms worsen or any other concerns. Prescriptions: Amoxicillin 875 mg PO Q12HR #20 tablet Fluticasone Nasal [place] [Flonase Nasal [place]] 2 spr EA NOSTRIL DAILY #1 bottle Is patient prescribed a controlled substance at d/c from ED?: No Referrals: None,Stated [Primary Care Provider] - 1-2 days Time of Disposition: 08:50
== END 2019-03-10 09:00 | disposition home or self-care (01) ==
LOC: EC 08:23
DX: J32.9 Chronic sinusitis, unspecified (principal); H69.83 Other specified disorders of Eustachian tube, bilateral; J44.9 Chronic obstructive pulmonary disease, unspecified; E11.9 Type 2 diabetes mellitus without complications; E78.5 Hyperlipidemia, unspecified; I10 Essential (primary) hypertension; I25.2 Old myocardial infarction; Z87.891 Personal history of nicotine dependence; Z88.1 Allergy status to other antibiotic agents; Z88.2 Allergy status to sulfonamides; Z88.8 Allergy status to other drugs, medicaments and biological substances; Z91.041 Radiographic dye allergy status; Z79.51 Long term (current) use of inhaled steroids; Z79.82 Long term (current) use of aspirin; Z79.84 Long term (current) use of oral hypoglycemic drugs; Z79.899 Other long term (current) drug therapy; Z86.73 Personal history of transient ischemic attack (TIA), and cerebral infarction without residual deficits
CPT/HCPCS: 99282

== ENCOUNTER 2020-12-13 16:44 | Emergency (ER) | payer MEDICARE ==
[2020-12-13 17:47] VITALS: BP 133/83; PULSE 94; RESP 18; TEMP 97.9
[2020-12-13] MEDS ORDERED: SODIUM CHLORIDE 0.9% 1,000 ML IV STA (19:24)
[2020-12-13 19:38] LABS: Basophils % (A) 0 %; Eosinophils # (A) 0.2 k/uL (0-0.7); Eosinophils % (A) 2 %; HCT 43.9 % (34.0-46.0); Lymphocytes # (A) 2.6 k/uL (1.0-4.8); Lymphocytes % (A) 29 %; MCHC 31.9 g/dL (31.0-37.0); Mean Platelet Volume 9.2; Monocytes # (A) 0.6 k/uL (0-1.0); Monocytes % (A) 7 %; Neutrophils # (A) 5.6 k/uL (1.3-7.7); Neutrophils % (A) 61 %; Platelet Count 225 k/uL (150-450); RBC 4.82 m/uL (3.80-5.40); RDW 13.6 % (11.5-15.5); WBC 9.1 k/uL (3.8-10.6)
--- NOTE | 2020-12-13 19:39 | ED ---
Weakness HPI - General Chief complaint: Weakness Stated complaint: Altered mental status Time Seen by Provider: 12/13/20 19:02 Source: patient, family Mode of arrival: wheelchair Limitations: no limitations - History of Present Illness Initial comments: 80-year-old female with history of CVA, diabetes, hypertension, dyslipidemia, CAD presenting to the emergency department with a chief complaint of weakness. Daughter is also present in emergency department. She states the patient woke up this morning and did not recognize her dog which she has lived with for multiple years. Daughter states the patient doesn't appear to be confused and she washed her clothes and hung up driving. This is not something that she typically overdose. Daughter states the patient does have short-term memory impairment from her previous CVA but no unilateral weakness per se. Patient states that she only feels weak at this time and has not had much to eat or drin k today. She denies any blurry vision, chest pain, shortness of breath, fevers, chills. Denies any UTI like symptoms. Denies hematuria, hematochezia or melena. Denies abdominal or back pain. Covert vaccinated. - Related Data Home Medications Medication Instructions Recorded Confirmed Aspirin EC [Ecotrin Low Dose] 81 mg PO DAILY 04/24/18 11/22/18 Atorvastatin [Lipitor] 40 mg PO HS 04/24/18 11/22/18 Cholecalciferol [Vitamin D3 (25 1,000 unit PO DAILY 04/24/18 11/22/18 Mcg = 1000 Iu)] Fluticasone Propionate [Flovent 250 mcg INHALATION RT-BID 04/24/18 11/22/18 Diskus] Loratadine [Claritin] 10 mg PO HS 04/24/18 11/22/18 Losartan Potassium [Cozaar] 50 mg PO DAILY 04/24/18 11/22/18 Multivitamin,Therapeutic [Thera] 1 tab PO DAILY 04/24/18 11/22/18 Vit C/E/Zn/Coppr/Lutein/Zeaxan 1 cap PO DAILY 04/24/18 11/22/18 [Preservision Areds 2 Softgel] metFORMIN HCL 500 mg PO DAILY 04/24/18 11/22/18 Acetaminophen [Tylenol Arthritis] 650 mg PO Q6H PRN 11/11/18 11/22/18 Bisacodyl 5 mg PO HS 11/11/18 11/22/18 Previous Rx's Medication Instructions Recorded Aspirin 325 mg PO BID #60 tab 11/23/18 HYDROcodone/APAP 7.5-325MG [[place] 1 - 2 tab PO Q6H PRN #56 tab 11/23/18 7.5-325] Pantoprazole Sodium [Protonix] 20 mg PO DAILY #30 tablet. 11/23/18 Sennosides [Senokot] 1 tab PO BID #60 tablet 11/23/18 Amoxicillin 875 mg PO Q12HR #20 tablet 03/10/19 Fluticasone Nasal [place] [Flonase 2 spr EA NOSTRIL DAILY #1 bottle 03/10/19 Nasal [place]] Cefdinir 300 mg PO Q12HR 10 Days #20 cap 12/13/20 Allergies Allergy/AdvReac Type Severity Reaction Status Date / Time carvedilol [From Coreg] Allergy Unknown Verified 12/13/20 17:43 ciprofloxacin [From Cipro] Allergy Unknown Verified 12/13/20 17:43 Iodinated Contrast Media Allergy Unknown Verified 12/13/20 17:43 [Iodinated Contrast- Oral and IV Dye] simvastatin Allergy Unknown Verified 12/13/20 17:43 Sulfa (Sulfonamide Allergy Unknown Verified 12/13/20 17:43 Antibiotics) Review of Systems ROS Statement: Those systems with pertinent positive or pertinent negative responses have been documented in the HPI. ROS Other: All systems not noted in ROS Statement are negative. Past Medical History Past Medical History: COPD, CVA/TIA, Diabetes Mellitus, Hyperlipidemia, H ypertension, Myocardial Infarction ([place]) Additional Past Medical History / Comment(s): diverticulitis Last Myocardial Infarction Date:: unknown History of Any Multi-Drug Resistant Organisms: None Reported Past Surgical History: Appendectomy, Tonsillectomy Additional Past Surgical History / Comment(s): Open Heart Surgery Past Anesthesia/Blood Transfusion Reactions: Previous Problems w/ Anesthesia Additional Past Anesthesia/Blood Transfusion Reaction / Comment(s): slow to wake from anesthesia Date of Last Stent Placement:: unknown Past Psychological History: No Psychological Hx Reported Smoking Status: Former smoker Past Alcohol Use History: None Reported Past Drug Use History: None Reported - Past Family History Mother Family Medical History: No Reported History General Exam Limitations: no limitations General appearance: alert, in no apparent distress Head exam: Present: atraumatic, normocephalic, normal inspection Eye exam: Present: normal appearance, PERRL, EOMI Pupils: Present: normal accommodation ENT exam: Present: normal exam, normal oropharynx, mucous membranes moist, TM's normal bilaterally, normal external ear exam Neck exam: Present: normal inspection, full ROM. Absent: tenderness Respiratory exam: Present: normal lung sounds bilaterally. Absent: respiratory distress, wheezes, rales, rhonchi, stridor, chest wall tenderness, accessory muscle use Cardiovascular Exam: Present: regular rate, normal rhythm, normal heart sounds. Absent: systolic murmur, diastolic murmur GI/Abdominal exam: Present: soft. Absent: distended, tenderness, guarding, re bound Extremities exam: Present: normal inspection, full ROM, normal capillary refill, other (Palpable DP and PT bilaterally.). Absent: tenderness, pedal edema, joint swelling, calf tenderness Back exam: Present: normal inspection, full ROM. Absent: tenderness, CVA tenderness (R), CVA tenderness (L) Neurological exam: Present: alert, oriented X3, CN II-XII intact, normal gait Expanded Patient oriented to: Present: person, place, time Speech: Present: fluid speech Cranial nerves: EOM's Intact: Normal, Gag Reflex: Normal, Tongue Deviation: Normal, Nystagmus: Normal, Facial Sensation: Normal Cerebellar function: Finger to Nose: Normal Upper motor neuron: Pronator Drift: Normal Sensory exam: Upper Extremity Light Touch: Normal, Lower Extremity Light Touch: Normal Motor strength exam: RUE: 5, LUE: 5, RLE: 5, LLE: 5 Psychiatric exam: Present: normal affect, normal mood Skin exam: Present: warm, dry, intact, normal color Course Vital Signs 12/13/20 17:43 Temperature 97.9 F Pulse Rate 94 Respiratory 18 Rate Blood Pressure 133/83 O2 Sat by Pulse 96 Oximetry Medical Decision Making - Medical Decision Making 80-year-old female with history of CVA, diabetes, hypertension, dyslipidemia, CAD presenting to the emergency department with a chief complaint of weakness. On physical examination, patient is resting comfortably bed. No focal neural deficits. CBC CMP unremarkable. Troponin within normal limits. Low suspicion for stroke at this time. CT of the brain shows an old infarct. UA positive for urinary tract infection. Urine cultures pending. I reviewed the most recent urine cultures and patient has multiple drug resistance patterns. Patient is also ALLERGIC to Bactrim and for quinolones which is limiting in terms of antibiotic availability. She is susceptible to ceftriaxone. She was given 1 g of Rocephin. She will be discharged with cefdinir which is also a third- generation cephalosporin. Daughter is also understanding and agreeable. Return parameters were thoroughly discussed the patient and daughter were understanding and agreeable. Case discussed with physician. - Lab Data Result diagrams: 12/13/20 19:29 12/13/20 19:29 Lab Results 12/13/20 12/13/20 12/13/20 Range/Units 19:29 19:29 19:29 WBC 9.1 (3.8-10.6) k/uL RBC 4.82 (3.80-5.40) m/uL Hgb 14.0 (11.4-16.0) gm/dL Hct 43.9 (34.0-46.0) % MCV 91.0 (80.0-100.0) fL MCH 29.0 (25.0-35.0) pg MCHC 31.9 (31.0-37.0) g/dL RDW 13.6 (11.5-15.5) % Plt Count 225 (150-450) k/uL MPV 9.2 Neutrophils % 61 % Lymphocytes % 29 % Monocytes % 7 % Eosinophils % 2 % Basophils % 0 % Neutrophils # 5.6 (1.3-7.7) k/uL Lymphocytes # 2.6 (1.0-4.8) k/uL Monocytes # 0.6 (0-1.0) k/uL Eosinophils # 0.2 (0-0.7) k/uL Basophils # 0.0 (0-0.2) k/uL PT 10.3 (9.0-12.0) sec INR 1.0 (<1.2) APTT 22.1 (22.0-30.0) sec Sodium (137-145) mmol/L Potassium (3.5-5.1) mmol/L Chloride (98-107) mmol/L Carbon Dioxide (22-30) mmol/L Anion Gap mmol/L BUN (7-17) mg/dL Creatinine (0.52-1.04) mg/dL Est GFR (CKD-EPI)AfAm (>60 ml/min/1.73 sqM) Est GFR (CKD-EPI)NonAf (>60 ml/min/1.73 sqM) Glucose (74-99) mg/dL Calcium (8.4-10.2) mg/dL Total Bilirubin (0.2-1.3) mg/dL AST (14-36) U/L ALT (4-34) U/L Alkaline Phosphatase (38-126) U/L Troponin I (0.000-0.034) ng/mL Total Protein (6.3-8.2) g/dL Albumin (3.5-5.0) g/dL Urine Color Dark Yellow Urine Appearance Cloudy H (Clear) Urine pH 5.5 (5.0-8.0) Ur Specific [place] 1.044 H (1.001-1.035) Urine Protein 1+ H (Negative) Urine Glucose (UA) Negative (Negative) Urine Ketones 1+ H (Negative) Urine Blood Negative (Negative) Urine Nitrite Negative (Negative) Urine Bilirubin Negative (Negative) Urine Urobilinogen 3.0 (<2.0) mg/dL Ur Leukocyte Esterase Large H (Negative) Urine RBC 5 (0-5) /hpf Urine WBC 65 H (0-5) /hpf Ur Squamous Epith Cells 5 H (0-4) /hpf Calcium Oxalate Crystal Many H (None) /hpf Urine Bacteria Many H (None) /hpf Hyaline Casts 4 H (0-2) /lpf Urine Mucus Many H (None) /hpf 12/13/20 12/13/20 Range/Units 19:29 19:29 WBC (3.8-10.6) k/uL RBC (3.80-5.40) m/uL Hgb (11.4-16.0) gm/dL Hct (34.0-46.0) % MCV (80.0-100.0) fL MCH (25.0-35.0) pg MCHC (31.0-37.0) g/dL RDW (11.5-15.5) % Plt Count (150-450) k/uL MPV Neutrophils % % Lymphocytes % % Monocytes % % Eosinophils % % Basophils % % Neutrophils # (1.3-7.7) k/uL Lymphocytes # (1.0-4.8) k/uL Monocytes # (0-1.0) k/uL Eosinophils # (0-0.7) k/uL Basophils # (0-0.2) k/uL PT (9.0-12.0) sec INR (<1.2) APTT (22.0-30.0) sec Sodium 140 (137-145) mmol/L Potassium 3.9 (3.5-5.1) mmol/L Chloride 103 (98-107) mmol/L Carbon Dioxide 26 (22-30) mmol/L Anion Gap 11 mmol/L BUN 22 H (7-17) mg/dL Creatinine 0.89 (0.52-1.04) mg/dL Est GFR (CKD-EPI)AfAm 71 (>60 ml/min/1.73 sqM) Est GFR (CKD-EPI)NonAf 61 (>60 ml/min/1.73 sqM) Glucose 95 (74-99) mg/dL Calcium 9.6 (8.4-10.2) mg/dL Total Bilirubin 0.4 (0.2-1.3) mg/dL AST 29 (14-36) U/L ALT 13 (4-34) U/L Alkaline Phosphatase 116 (38-126) U/L Troponin I 0.015 (0.000-0.034) ng/mL Total Protein 6.8 (6.3-8.2) g/dL Albumin 4.0 (3.5-5.0) g/dL Urine Color Urine Appearance (Clear) Urine pH (5.0-8.0) Ur Specific [place] (1.001-1.035) Urine Protein (Negative) Urine Glucose (UA) (Negative) Urine Ketones (Negative) Urine Blood (Negative) Urine Nitrite (Negative) Urine Bilirubin (Negative) Urine Urobilinogen (<2.0) mg/dL Ur Leukocyte Esterase (Negative) Urine RBC (0-5) /hpf Urine WBC (0-5) /hpf Ur Squamous Epith Cells (0-4) /hpf Calcium Oxalate Crystal (None) /hpf Urine Bacteria (None) /hpf Hyaline Casts (0-2) /lpf Urine Mucus (None) /hpf Disposition Clinical Impression: Urinary tract infection Disposition: HOME SELF-CARE Condition: Stable Instructions (If sedation given, give patient instructions): Urinary Tract Infection in Women ([place]) Additional Instructions: Please return to the Emergency Department if symptoms worsen or any other concerns. Prescriptions: Cefdinir 300 mg PO Q12HR 10 Days #20 cap Is patient prescribed a controlled substance at d/c from ED?: No Referrals: Farzaneh Edwards MD [Primary Care Provider] - 1-2 days Time of Disposition: 21:38
[2020-12-13 19:46] LABS: Calcium 9.6 mg/dL (8.4-10.2); Potassium 3.9 mmol/L (3.5-5.1); Total Bilirubin 0.4 mg/dL (0.2-1.3); Total Protein 6.8 g/dL (6.3-8.2)
[2020-12-13 19:48] LABS: Partial Thromboplastin Time 22.1 sec (22.0-30.0); Prothrombin Time 10.3 sec (9.0-12.0)
[2020-12-13 19:49] LABS: Appearance,Urine Cloudy (Clear); Bacteria,Urine Many /hpf; Bilirubin,Urine Negative (Negative); Blood,Urine Negative (Negative); Calcium Oxalate Crystals,Urine Many /hpf; Color,Urine Dark Yellow; Glucose,Urine (UA) Negative (Negative); Hyaline Casts,Urine 4 /lpf (0-2); Ketones,Urine 1+ (Negative); Leukocyte Esterase,Urine Large (Negative); Mucus,Urine Many /hpf; Nitrite,Urine Negative (Negative); PH, Urine 5.5 (5.0-8.0); Protein,Urine 1+ (Negative); RBC,Urine 5 /hpf (0-5); Specific Gravity,Urine 1.044 (1.001-1.035); Squamous Epithelial Cell,Urine 5 /hpf (0-4); WBC,Urine 65 /hpf (0-5)
[2020-12-13] MEDS ORDERED: cefTRIAXone IN SWFI 1,000 MG/10 ML SYRINGE IVP STA (20:41)
--- NOTE | 2020-12-13 20:54 | CT ---
EXAMINATION TYPE: CT brain wo con DATE OF EXAM: 12/13/2020 COMPARISON: None HISTORY: weakness CT DLP: 1115.4 mGycm Automated exposure control for dose reduction was used. FINDINGS: Hypodensity of the right posterior parietal subcortical white matter with minimal involvement of the cortex. Hypodensities of the right cerebellar hemisphere, right internal capsule, left globus pallidus and le ft thalamus. Patchy hypodensity of the periventricular white matter. No acute intracranial hemorrhage, large vessel territory infarct, mass or mass effect. No midline garcia ft. No Hydrocephalus. The ventricles and sulci are concordant. Opacification of a few mastoid air cells bilaterally. Remaining paranasal sinuses and the ethmoid air cells are well-developed and pneumatized. Intracranial atherosclerosis. The globes are aphakic. 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
== END 2020-12-13 21:30 | disposition home or self-care (01) ==
LOC: EC 16:44
DX: N39.0 Urinary tract infection, site not specified (principal); E11.9 Type 2 diabetes mellitus without complications; I10 Essential (primary) hypertension; I25.2 Old myocardial infarction; E78.5 Hyperlipidemia, unspecified; I25.10 Atherosclerotic heart disease of native coronary artery without angina pectoris; J44.9 Chronic obstructive pulmonary disease, unspecified; Z79.82 Long term (current) use of aspirin; Z79.84 Long term (current) use of oral hypoglycemic drugs; Z88.1 Allergy status to other antibiotic agents; Z88.2 Allergy status to sulfonamides; Z91.041 Radiographic dye allergy status; Z86.73 Personal history of transient ischemic attack (TIA), and cerebral infarction without residual deficits; Z90.49 Acquired absence of other specified parts of digestive tract; Z90.89 Acquired absence of other organs; Z87.891 Personal history of nicotine dependence
CPT/HCPCS: 99285; 96374; 96361; 36415; 93005; 80053; 84484; 85025; 85610; 85730; 81001; 87086; 70450; J0696; 87077; 87186

== ENCOUNTER → 2021-06-16 | Outpatient (CLI) | payer MEDICARE ==
[2021-06-16 18:11] LABS: African American GFR (CKD) 59.7 (60.0-200.0); Albumin 4.1 g/dL (3.8-4.9); Albumin/Globulin Ratio 1.81 (1.60-3.17); Anion Gap 11.3 mmol/L (10.00-18.00); BUN/Creat Ratio 17.84 Ratio (12.00-20.00); Blood Urea Nitrogen 18.2 mg/dL (9.0-27.0); Calcium 9.3 mg/dL (8.7-10.3); Carbon Dioxide 25.6 mmol/L (20.0-27.5); Globulin 2.3 g/dL (1.6-3.3); Non-African American GFR(CKD) 51.5 (60.0-200.0); Potassium 4.8 mmol/L (3.5-5.5); Total Bilirubin 0.3 mg/dL (0.30-1.20); Total Protein 6.4 g/dL (6.2-8.2)
== END | disposition home or self-care (01) ==
LOC: LABWHC1 13:03
PROVIDERS: ATTEND Internal Medicine Cardiovascular Disease
DX: I50.9 Heart failure, unspecified (principal)
CPT/HCPCS: 36415; 80053; 83880

== ENCOUNTER → 2022-07-31 | Outpatient (CLI) | payer MEDICARE ==
[2022-07-31 11:18] LABS: ALT 13 U/L (8-44); AST 19 U/L (13-35); Chol/HDL Ratio 2.95 Ratio; LDL Cholesterol,Calculated 65.5 mg/dL (0.0-131.0)
== END | disposition home or self-care (01) ==
LOC: LABWHC1 07:49
PROVIDERS: ATTEND Internal Medicine Cardiovascular Disease
DX: E78.2 Mixed hyperlipidemia (principal)
CPT/HCPCS: 36415; 80061; 84450; 84460